=== PATIENT | female | born 1965 | race Caucasian/White ===

== ENCOUNTER 2016-07-13 16:32 | Observation (INO) | payer OTHER ==
[~2016-07-13] VITALS: Ht 152.4 cm; Wt 55.5 kg
[2016-07-13] MEDS ORDERED: ONDANSETRON 4 MG INJ IV STA (19:48)
[2016-07-13] MEDS ORDERED: morphine 4 MG/ML VIAL IV STA (19:48)
[2016-07-13] MEDS ORDERED: SOD CHLORIDE 0.9% 1,000 ML IV STA (19:48)
[2016-07-13] MEDS ORDERED: LORA0.5T PO (20:12)
[2016-07-13] MEDS ORDERED: HYDR-906 PO (20:12)
[2016-07-13 20:14] LABS: BASOPHILS % 0.4 % (0.0-2.0); EOSINOPHILS % 0.1 % (0.0-7.0); HEMATOCRIT 37.1 % (37.0-47.0); HEMOGLOBIN 12.7 g/dl (12.0-16.0); LYMPHOCYTES # 1.6 10^3/ul (0.8-2.9); LYMPHOCYTES % 15.7 % (15.0-51.0); MEAN CORPUSCULAR HEMOGLOBIN 29.3 pg (29.0-33.0); MEAN CORPUSCULAR HGB CONC 34.2 g/dl (32.0-37.0); MEAN CORPUSCULAR VOLUME 85.7 fl (82.0-101.0); MEAN PLATELET VOLUME 8.1 fl (7.4-10.4); MONOCYTE # 0.2 10^3/ul (0.3-0.9); MONOCYTES % 2.3 % (0.0-11.0); NEUTROPHIL # 8.4 10^3/ul (1.6-7.5); NEUTROPHILS % 81.5 % (39.0-77.0); PLATELET COUNT 326 10^3/UL (140-440); RED BLOOD COUNT 4.33 10^6/ul (4.20-5.40); RED CELL DISTRIBUTION WIDTH 14.8 % (11.5-14.5); UNCORRECTED WBC 10.4 10^3/ul (4.8-10.8); WHITE BLOOD COUNT 10.4 10^3/ul (4.8-10.8)
[2016-07-13] MEDS ORDERED: MELO-110 PO (20:14)
[2016-07-13 20:19] LABS: ADD UMIC YES; CONDITION 1; LH ANALYZER COMMENTS 1; URINE BILIRUBIN (Dip) NEGATIVE (NEGATIVE); URINE BLOOD (Dip) 2+ (NEGATIVE); URINE COLOR LT. YELLOW (YELLOW); URINE GLUCOSE (Dip) NEGATIVE (NEGATIVE); URINE KETONES (Dip) 40 (NEGATIVE); URINE LEUKOCYTE ESTERASE (Dip) NEGATIVE (NEGATIVE); URINE NITRITE (Dip) NEGATIVE (NEGATIVE); URINE TOTAL PROTEIN (Dip) NEGATIVE (NEGATIVE); URINE UROBILINOGEN (Dip) 0.2 E.U./dL (0.1-1.0)
[2016-07-13 20:24] LABS: ALBUMIN 4.3 g/dl (3.3-4.9)
[2016-07-13 20:25] LABS: CHLORIDE 101 mmol/L (97-110); POTASSIUM 3.8 mmol/L (3.5-5.1); SODIUM 139 mmol/L (135-144)
[2016-07-13 20:27] LABS: BILIRUBIN,INDIRECT 0.8 mg/dl (0-1.1); BILIRUBIN,TOTAL 0.8 mg/dl (0.2-1.3); CREATININE 0.52 mg/dl (0.44-1.00)
[2016-07-13 20:28] LABS: ALANINE AMINOTRANSFERASE 22 IU/L (13-69); ALBUMIN/GLOBULIN RATIO 1.38; ALKALINE PHOSPHATASE 71 IU/L (42-121); ANION GAP 18 (8-16); ASPARTATE AMINO TRANSFERASE 52 IU/L (15-46); BLOOD UREA NITROGEN 11 mg/dl (7-20); CALCIUM 9.5 mg/dl (8.4-10.2); CARBON DIOXIDE 24 mmol/L (21-31); GLUCOSE 96 mg/dl (70-220); TOTAL PROTEIN 7.4 g/dl (6.1-8.1)
[2016-07-13 20:40] LABS: TROPONIN-I < 0.012 ng/ml (0.00-0.12)
--- NOTE | 2016-07-13 20:55 | RADRPT ---
PROCEDURE: CT Brain without contrast. CLINICAL INDICATION: Headache and dizziness. TECHNIQUE: A CT of the brain without contrast was performed utilizing axial sections from the skul l base through the vertex. The patient was scanned without intravenous contrast enhancement. [place] l and coronal reformatted images were obtained using the data from the axial images. Total exam DLP is 720.23 mGy-cm. CTDIvol is 45.01 mGy. One or more of the following dose reduction techniques we re used: Automated exposure control, adjustment of the mA and/or kV according to patient size, use o f iterative reconstruction technique. COMPARISON: None available FINDINGS: There is normal dupont-white matter differentiation. The ventricles and cisterns are normal. There is no intracranial hemorrhage or space-occupying lesion. There is no skull fracture or lytic lesion. IMPRESSION: 1. Normal noncontrast CT scan of the brain. 2. No intracranial hemorrhage. RPTAT: QQ .Zeferino Portillo MD, MD Date Time Electronically viewed and signed by .Zeferino Portillo MD, MD on 07/13/2016 20:54 .R/
[2016-07-13 21:04] LABS: URINE RBCS 0-2 /HPF (0)
[2016-07-13 21:05] LABS: BACTERIA,URINE FEW; SQUAMOUS EPITHELIAL CELL,UR MODERATE
[2016-07-13] MEDS ORDERED: ONDANSETRON (ODT) 4 MG TAB ODT STA (21:10)
[2016-07-13] MEDS ORDERED: MECL12.574 PO (21:12)
[2016-07-13] MEDS ORDERED: ONDA4TAB14 PO (21:12)
--- NOTE | 2016-07-13 21:13 | ERD ---
ER Documentation Chief Complaint Date/Time DATE: 07/13/16 TIME: 21:13 Chief Complaint VOMITING, SOB, DIZZY, VAG BLEED X 2 WEEK HPI Patient is a 42-year-old female with no medical problems who presents with vomiting, headache, and dizziness. The symptoms started this morning and have become worse as the day has gone on. She tried Tylenol for the pain. She denies fever. She has no diarrhea. She said that she did have blood in her urine. Upon review of old medical records this is the patient's first visit to the emergency department. She said that her primary doctor is Dr. Bee. ROS All systems reviewed and are negative except as per history of present illness. Medications Home Meds Active Scripts Ondansetron (Ondansetron Odt) 4 Mg Tab.rapdis, 4 MG PO Q6H Y for NAUSEA AND/OR VOMITING, #30 TAB Prov:PATTIE WHITTAKER MD 07/13/16 Meclizine Hcl* (Antivert*) 12.5 Mg Tab, 25 MG PO Q6H Y for DIZZINESS, #20 TAB Prov:PATTIE WHITTAKER MD 07/13/16 Reported Medications Meloxicam* (Mobic*) 15 Mg Tablet, 15 MG PO DAILY Y for PRN, #30 TAB 07/13/16 Hydrocodone/Acetaminophen ([place] 5-325 Tablet) 1 Each Tablet, 1 EACH PO Q4H, TAB 07/13/16 Lorazepam* (Lorazepam*) 0.5 Mg Tablet, 0.5 MG PO HS Y for ANXIETY, TAB 07/13/16 Allergies Allergies: Coded Allergies: No Known Allergy (Unverified , 07/13/16) PMhx/Soc Medical and Surgical Hx: pt denies Medical Hx, pt denies Surgical Hx History of Surgery: No Anesthesia Reaction: No Hx Neurological Disorder: No Hx Respiratory Disorders: No Hx Cardiac Disorders: No Hx Psychiatric Problems: No Hx Miscellaneous Medical Probl: No Hx Alcohol Use: No Hx Substance Use: No Hx Tobacco Use: No Smoking Status: Never smoker FmHx Family History: diabetes Physical Exam Vitals Vital Signs Date Time Temp Pulse Resp B/P Pulse Ox O2 Delivery O2 Flow Rate FiO2 07/13/16 20:08 97.9 77 16 127/75 99 Room Air 07/13/16 16:42 98.0 77 18 139/63 99 Physical Exam Const: Moderate distress secondary to dizziness and nausea Head: Atraumatic Eyes: Normal Conjunctiva ENT: Normal External Ears, Nose and Mouth. Neck: Full range of motion..~ No meningismus. Resp: Clear to auscultation bilaterally Cardio: Regular rate and rhythm, no murmurs Abd: Soft, non tender, non distended. Normal bowel sounds Skin: No petechiae or rashes Back: No midline or flank tenderness Ext: No cyanosis, or edema Neur: Awake and alert, no slurred speech, cranial nerves II through XII are intact, strength is 5 out of 5 in all 4 extremity Psych: Normal Mood and Affect Result Diagram: 07/13/16199907/13/161999 Results 24 hrs Laboratory Tests Test 07/13/16 20:00 Alanine Aminotransferase (ALT/SGPT) 22IU/L Albumin 4.3g/dl Albumin/Globulin Ratio 1.38 Alkaline Phosphatase 71IU/L Anion Gap 18 Aspartate Amino Transf (AST/SGOT) 52IU/L Basophils # 0.010^3/ul Basophils % 0.4% Blood Morphology Comment Blood Urea Nitrogen 11mg/dl Calcium Level 9.5mg/dl Carbon Dioxide Level 24mmol/L Chloride Level 101mmol/L Creatinine 0.52mg/dl Direct Bilirubin 0.00mg/dl Eosinophils # 0.010^3/ul Eosinophils % 0.1% Globulin 3.10g/dl Glucose Level 96mg/dl Hematocrit 37.1% Hemoglobin 12.7g/dl Indirect Bilirubin 0.8mg/dl Lipase 143U/L Lymphocytes # 1.610^3/ul Lymphocytes % 15.7% Mean Corpuscular Hemoglobin 29.3pg Mean Corpuscular Hemoglobin Concent 34.2g/dl Mean Corpuscular Volume 85.7fl Mean Platelet Volume 8.1fl Monocytes # 0.210^3/ul Monocytes % 2.3% Neutrophils # 8.410^3/ul Neutrophils % 81.5% Nucleated Red Blood Cells # 0.010^3/ul Nucleated Red Blood Cells % 0.0/100WBC Platelet Count 14015^3/UL Potassium Level 3.8mmol/L Red Blood Count 4.3310^6/ul Red Cell Distribution Width 14.8% Sodium Level 139mmol/L Total Bilirubin 0.8mg/dl Total Protein 7.4g/dl Troponin I < 0.012ng/ml Urine Bacteria FEW Urine Bilirubin NEGATIVE Urine Clarity CLEAR Urine Color LT. YELLOW Urine Glucose NEGATIVE% Urine Hemoglobin 2+ Urine Ketones 40 Urine Leukocyte Esterase NEGATIVE Urine Microscopic RBC 0-2/HPF Urine Microscopic WBC 0-2/HPF Urine Nitrite NEGATIVE Urine Specific [place] 1.010 Urine Squamous Epithelial Cells MODERATE Urine Total Protein NEGATIVE Urine Urobilinogen 0.2 E.U./dL Urine pH 7.5 White Blood Count 10.410^3/ul Current Medications Medications (Trade) Dose Ordered Sig/Jen Route PRN Reason Start Time Stop Time Status Last Admin Dose Admin Sodium Chloride (NS) 1,000 ml @ 1,000 mls/hr Q1H STAT IV 07/13/16 19:48 07/13/16 20:47 DC 07/13/16 20:03 Morphine Sulfate (morphine) 4 mg ONCE STAT IV 07/13/16 19:48 07/13/16 19:50 DC 07/13/16 20:02 Ondansetron HCl (Zofran Inj) 4 mg ONCE STAT IV 07/13/16 19:48 07/13/16 19:50 DC 07/13/16 20:02 Meclizine HCl (Antivert) 25 mg ONCE ONCE PO 07/13/16 21:30 07/13/16 21:31 DC 07/13/16 21:15 Ondansetron HCl (Zofran Odt) 4 mg ONCE STAT ODT 07/13/16 21:10 07/13/16 21:11 DC 07/13/16 21:15 Procedures/MDM EKG read by me: Rate/Rhythm: Regular rate and rhythm at a rate of 62 Intervals: Normal Impression: No evidence of ischemia or arrhythmia CT brain negative per radiology. Patient is a 50-year-old female with no medical problems who presents with dizziness, headache, and vomiting. At this point I doubt stroke. She was given multiple doses of Zofran as well as meclizine. However the patient is still dizzy and nauseous. She is having difficulty getting out of bed given the symptoms. At this point I believe she has intractable nausea and vomiting and will need admission. She has regal insurance and I spoke with Dr. Freeman who will admit her to a medical surgical bed for observation stay. It is possible that she has vertigo versus viral illness but at this point I doubt stroke or serious bacterial infection. Departure Diagnosis: Primary Impression: Vomiting Vomiting type: unspecified Vomiting Intractability: non-intractable Nausea presence: with nausea Qualified Code: R11.2 - Non-intractable vomiting with nausea, unspecified vomiting type Additional Impression: Dizziness Condition: Fair Patient Instructions: Dizziness, Unk Cause, Vomiting (6Y-Adult) Referrals: Dr. Bee Additional Instructions: Llame al doctor MAANA y azalia jase BUTCH PARA DENTRO DE 1-2 MARRUFO.Dgale a la secretaria que nosotros le instruimos hacer esta butch.Avise o llame si cardona condicin se empeora antes de la butch. Regresa aqui si peor o no mejor. PATTIE WHITTAKER MD Jul 13, 2016 21:13
[2016-07-13] MEDS ORDERED: MECLIZINE 12.5 MG TAB PO ONE (21:30)
[2016-07-13] MEDS ORDERED: ONDANSETRON 4 MG INJ IV PRN (23:00)
[2016-07-13] MEDS ORDERED: ACETAMINOPHEN 325 MG TAB PO PRN (23:00)
[2016-07-14] MEDS ORDERED: morphine 4 MG/ML VIAL IV STA (00:52)
[2016-07-14] MEDS: ONDANSETRON 4 MG INJ IV PRN ×2 (01:46→11:58)
[2016-07-14 05:37] VITALS: TEMP 98
[2016-07-14 05:49] LABS: BASOPHILS % 0.3 % (0.0-2.0); EOSINOPHILS % 0.1 % (0.0-7.0); HEMATOCRIT 34.3 % (37.0-47.0); HEMOGLOBIN 11.8 g/dl (12.0-16.0); LYMPHOCYTES # 1.3 10^3/ul (0.8-2.9); LYMPHOCYTES % 14.7 % (15.0-51.0); MEAN CORPUSCULAR HEMOGLOBIN 29.5 pg (29.0-33.0); MEAN CORPUSCULAR HGB CONC 34.5 g/dl (32.0-37.0); MEAN CORPUSCULAR VOLUME 85.4 fl (82.0-101.0); MEAN PLATELET VOLUME 8.2 fl (7.4-10.4); MONOCYTE # 0.4 10^3/ul (0.3-0.9); MONOCYTES % 3.9 % (0.0-11.0); NEUTROPHIL # 7.3 10^3/ul (1.6-7.5); PLATELET COUNT 289 10^3/UL (140-440); RED BLOOD COUNT 4.01 10^6/ul (4.20-5.40); RED CELL DISTRIBUTION WIDTH 14.8 % (11.5-14.5)
[2016-07-14 05:52] LABS: ALBUMIN 3.8 g/dl (3.3-4.9)
[2016-07-14 05:53] LABS: POTASSIUM 3.6 mmol/L (3.5-5.1)
[2016-07-14 05:55] LABS: ALBUMIN/GLOBULIN RATIO 1.31; BILIRUBIN,INDIRECT 0.9 mg/dl (0-1.1); BILIRUBIN,TOTAL 0.9 mg/dl (0.2-1.3); CREATININE 0.52 mg/dl (0.44-1.00); TOTAL PROTEIN 6.7 g/dl (6.1-8.1)
[2016-07-14 05:56] LABS: CHOL/HDL RATIO 3.5 RATIO
[2016-07-14 05:59] LABS: CONDITION 1; LH ANALYZER COMMENTS 1
[2016-07-14 08:00] VITALS: BP 121/57; RESP 16
[2016-07-14 09:21] VITALS: Ht 152.4 cm; Wt 55.5 kg
[2016-07-14 10:00] VITALS: BP 121/57; PULSE 81; RESP 16
[2016-07-14] MEDS ORDERED: INFLUENZA VIRUS VACCINE 0.5 ML SYG IM* ONE (10:30)
[2016-07-14] MEDS ORDERED: MECLIZINE 25 MG TAB PO PRN (12:00)
[2016-07-14] MEDS ORDERED: POLYETHYLENE GLYCOL 17 GM PACKET PO SCH (15:30)
[2016-07-14] MEDS ORDERED: IOHEXOL 300MG/ML 150 ML BTL ONE (15:44)
[2016-07-14] MEDS ORDERED: SOD CHLORIDE 0.9% 100 ML ONE (15:44)
[2016-07-14] MEDS ORDERED: IOHEXOL 14.3 MG(I)/ML (ADULT) BTL PO ONE (16:00)
--- NOTE | 2016-07-14 16:49 | RADRPT ---
PROCEDURE: CT abdomen and pelvis with contrast. CLINICAL INDICATION: Left lower quadrant pain and lack of bowel movement for 3 days TECHNIQUE: CT scan of the abdomen and pelvis with contrast was performed. Coronal and sagittal im ages were also reformatted. 80 cc Omnipaque-300 intravenous contrast was administered without compl ication. Total exam CTDIvol = 16.35 mGy and DLP = 635.66 mGy-cm. COMPARISON: None available. FINDINGS: Visualized lower thorax: Linear subsegmental atelectasis or scarring in the left greater than right posterior lower lobes. There is no evidence for pleural effusion. Liver, gallbladder, pancreas and spleen: Normal hepatic contour, attenuation in size. There is no evidence for liver mass or ductal dilatation. The gallbladder is unremarkable. No common bile duct dilatation is evident. The pancreas is normal. The spleen is normal, not enlarged. Adrenal glands and genitourinary system: The adrenal glands are normal bilaterally. The kidneys ar e normal in size, contour and attenuation with no evidence for masses, calculi or hydronephrosis. Sy mmetric enhancement of the kidneys is present without evidence of pyelonephritis The ureters are unr emarkable. The urinary bladder wall is mildly thickened measuring 6 mm but may be related to partia l distension. In the left ovary/adnexa there is a round approximately 5 x 4.3 cm centrally hypodens e cystic lesion with some layering debris or hemorrhage in the dependent portion (series 3 image 115 - 127). There is suggestion of blood in the vagina and the endometrial thickness is approximately 1 cm. A trace amount of free fluid in the cul-de-sac is suggested. Gastrointestinal system: The stomach, small bowel and large intestine are normal in caliber. There is no evidence of obstruction, ileus or inflammation. The appendix and surrounding fat are normal. Diffuse thickening of the colon wall is most conspicuous in the transverse and descending colon seg ments with collapse of the colon lumen, the findings raising concern for nonspecific colitis. There is no evidence of pneumatosis and no diverticulitis. Peritoneum, retroperitoneum, vessels and lymph nodes: The abdominal aorta is normal in caliber. Th ere is no evidence for atherosclerotic calcification or arterial occlusion of the major aortic branc hes. Inferior vena cava is normal in caliber. There is no evidence for adenopathy. The peritoneal cavity is normal with no evidence for ascites. No pneumoperitoneum is present Osseous structures and musculoskeletal system: There is no evidence for acute osseous abnormality o r muscular pathology. No subcutaneous abnormalities are present. RPTAT:HJJR IMPRESSION: 1. Left ovarian/adnexal cystic lesion of approximately 5 x 4.3 cm with likely some internal debris or hemorrhage. 2. Diffuse colonic wall thickening and collapse of the colonic lumen raises concern for a nonspecif ic colitis. 3. Mild urinary bladder wall thickening unable to exclude cystitis. Consider urinalysis correlatio n. 4. Mildly thickened endometrium and blood within the vagina possibly related to the patients phase of menstruation. Physician Robin Date Time Electronically viewed and signed by Physician Robin on 07/14/2016 16:49 JR/
--- NOTE | 2016-07-14 17:18 | HP ---
DATE OF ADMISSION: 07/13/2016 CHIEF COMPLAINT: "I have a headache and I'm dizzy." HISTORY OF PRESENT ILLNESS: The patient is a 50-year-old healthy female who was in her usual state of health until approximately 1 day prior to admission. She presented with vomiting, headache, and dizziness. She tried Tylenol for the pain, but it did not help. She denied any fever or diarrhea. Upon evaluation in the emergency department, the patient had a CT scan of the head that was normal. Her labs were essentially normal, but as she continued to have dizziness and some emesis, she was placed on the observation unit for further evaluation and treatment. Of note, the patient is essentially healthy other than a right arthroscopic knee surgery she had approximately 1 month prior. She had been taking Mobic, Ativan, and [place]. Overall, she is faring well, and she stated her last dose of [place] was approximately 2 weeks ago. She denies any sick contacts and denies any upper respiratory tract infection symptoms. She denies any focal weakness, numbness, or diaphoresis. ALLERGIES: NO KNOWN DRUG ALLERGIES. MEDICATIONS: As above. PAST SURGICAL HISTORY: As above. PAST MEDICAL HISTORY: The patient stated that she has heavy menses during the last month. Her period lasted approximately 2 weeks. SOCIAL HISTORY: She is and has 3 children. Denies alcohol and tobacco use. FAMILY HISTORY: Essentially negative. REVIEW OF SYSTEMS: Negative except as stated in the history of present illness. PHYSICAL EXAMINATION: VITAL SIGNS: Temperature is 98.0, blood pressure 120/57, pulse rate of 81, respiratory rate is 16, oxygen saturation 100% on room air. HEENT: Normocephalic, atraumatic. Extraocular movements were intact. Her pupils were equal, round, reactive to light and accommodation. Oropharynx was clear. NECK: No JVD was noted. No thyromegaly was noted. CARDIOVASCULAR: She had a regular rate and rhythm without appreciable murmurs, rubs, or gallops. LUNGS: Her lungs were clear to auscultation bilaterally without rales, rhonchi , or crackles. ABDOMEN: Soft, nontender, nondistended with normoactive bowel sounds present in all 4 quadrants. EXTREMITIES: No clubbing, cyanosis, or edema was noted. Right knee had small healed incisions of her previous arthroscopic surgery. No oozing, swelling, or exudate was noted. NEUROLOGIC: She is alert and oriented x4. Cranial nerves II through XII are grossly intact. Strength and sensation was grossly intact. Cerebellar function was intact as well. LABORATORIES/TESTS: She had a CT scan of the brain, which was normal, and her white count was 10.4, hemoglobin 12.7, hematocrit of 37.1, platelet count of 326 ,000, with 81% neutrophils and no bands. Her sodium was 138, potassium 3.6, chloride 101, bicarbonate 24, anion gap 16, BUN 11, creatinine 0.52, glucose 96 , calcium 9.5, total bilirubin 0.8, indirect 0.8, AST 43, ALT 14, alkaline phosphatase 58, total protein 6.7, albumin 3.8, globulin 2.9, triglycerides 109 , cholesterol 219, LDL 135, HDL 62, lipase 143. Her urinalysis revealed 2+ hemoglobin, otherwise negative for urinary tract infection. IMPRESSION: The patient is a pleasant 50-year-old female who has a 1-day history of dizziness, nausea, and the sense that the room was spinning. She likely has benign positional vertigo. She was placed on the observation unit overnight and is feeling very well today. She still has some dizziness, but she has been able to hold oral liquids. We will continue workup with CT scan of abdomen and pelvis as she complained of mild left lower quadrant abdominal pain, and no bowel movement for 3 days. As stated above, she has been off narcotics, and it is unclear why she would not have a bowel movement for the last couple of days. Nevertheless, a CT scan will be ordered predominantly to reassure the patient that she is okay. I significantly doubt there would be any pathology; however, I will review the results with the patient and nurse. If the patient continues to remain stable, she will be discharged home on meclizine and Zofran. As she does likely have benign positional vertigo, I have already obtained insurance authorization for ENT followup. She will also have followup with her [employer] for her heavy periods. Dictated By: IZABELLA DOAN/TODD Conf#: [id number] DID#: [id number] MTDWendi
--- NOTE | 2016-07-14 19:36 | PDOCDIS ---
Discharge Instructions DIAGNOSIS Discharge Diagnosis: Benign Positional Vertigo CONDITION Patient Condition: Fair HOME CARE INSTRUCTIONS: Diet Instructions: Regular ACTIVITY: Activity Restrictions: Slowly Increase Activity Do not Drive Bathing Restrictions: Shower FOLLOW UP/APPOINTMENTS Appointments Dr. Canelo Rich for ENT evaluation for your dizziness Dr. Sutherland for your heavy periods IZABELLA JAY MD Jul 14, 2016 19:36
[2016-07-14] MEDS ORDERED: ONDA4VIA2 IV (19:38)
[2016-07-14] MEDS ORDERED: MECL-77 PO (19:38)
--- NOTE | 2016-07-14 20:24 | DS ---
DATE OF ADMISSION: 07/13/2016 DATE OF DISCHARGE: 07/14/2016 DISCHARGE DIAGNOSES: 1. Benign positional vertigo: Improved. The patient is to continue meclizine and Zofran as an outpatient. Will follow up with ENT. 2. Menorrhagia: Stable. The patient's hemoglobin is approximately 11.7. She is to follow up with Dr. Sutherland as an outpatient. HOSPITAL COURSE: The patient is a very pleasant 50-year-old female who was in her usual state of health until approximately 1 day prior to admission where she felt extremely dizzy, that the room was spinning. She also had a severe headache. She presented to the emergency department with the aforementioned symptoms, and her workup was essentially negative. She had a CT scan of the brain that was normal as well as urinalysis which was negative for urinary tract infection. Her CBC and BMP were completely within normal limits. She had no white count and the remainder of her workup and examination was completely normal. As she stated that she has had some left lower quadrant pain and lack of a bowel movement for 3 days, a CT scan of the abdomen and pelvis was done without contrast. It was noted that she has left ovarian cyst that is approximately 5 x 4.3 with some internal debris or hemorrhage. Of note , her hemoglobin was 11.7. She also had mild urinary bladder wall thickening. However, her urinalysis was negative. She also had mild thickened endometrium and blood within the vagina related to her menstrual cycle. Overall, her examinations were essentially normal and at the time of discharge, she was ambulating without difficulty. Of note, she does use crutches as the patient had a knee surgery approximately 1 month ago. The course of care and treatment was explained to the patient. I explained to her and her that she probably has benign positional vertigo and these symptoms will likely resolve in a few days. To manage her dizziness, meclizine was effective and she should continue this as an outpatient. She did not have any vomiting while she was admitted; however, Zofran was prescribed as well to help with her nausea. I explained to her that an evaluation with an ear, nose and throat physician would be in order, so that inner ear pathology could be excluded as well. The patient and her were understanding and were agreeable to the treatment plan. Also, the patient had a heavy period for approximately 2 weeks. Her hemoglobin was 11.7 at the time of discharge. She was otherwise feeling well. She was not actively bleeding at the time of discharge either. 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 A referral was given in hand at the time of discharge to Dr. Sutherland so the patient could get an outpatient workup for this issue. Again, the patient and her were agreeable and appreciative of the referrals. CONDITION ON DISCHARGE: Stable. DISPOSITION: Discharged to home. DISCHARGE MEDICATIONS: 1. Meclizine 25 mg 1 orally every 6 hours p.r.n. dizziness. 2. Zofran 4 mg orally every 6 hours p.r.n. nausea. 3. [place] 5/325 one p.o. q. 6 hours p.r.n. knee pain. The patient noted that she has not taken this medicine for over 2 weeks. 4. Lorazepam 0.5 mg p.o. at bedtime p.r.n. anxiety. FOLLOWUP VISITS: The patient is to follow with Dr. Sutherland in 2 weeks as well as this week. Dictated By: IZABELLA DOAN/TODD Conf#: [id number] DID#: [id number] MTDWendi
== END 2016-07-14 20:25 | disposition home or self-care (01) ==
LOC: E/R 16:32 → MS2 22:40
PROVIDERS: ADMIT Internal Medicine; ATTEND Internal Medicine
DX: H81.10 Benign paroxysmal vertigo, unspecified ear (principal); N92.0 Excessive and frequent menstruation with regular cycle; Z83.3 Family history of diabetes mellitus
CPT/HCPCS: 36415; 70450; 74177; 80053; 80061; 81001; 83690; 84484; 85025; 86850; 86900; 86901; 93005; 96361; 96374; 96375; 96376; 99217; 99285; J2270; J2405; J7030; Q9967; 81003; 90686; G0378